=== PATIENT | male | born 1940 | race Hispanic/Latino ===

== ENCOUNTER 2020-11-11 06:06 | Day surgery (SDC) | payer MEDICARE ==
[2020-11-11] MEDS ORDERED: SODIUM CHLORIDE 0.9% 500 ML 500 ML IV SCH (07:00)
[2020-11-11 07:27] LABS: Basophils # (Auto) 0.1 K/mm3 (0.0-0.1); Basophils % (Auto) 2.4 % (0.0-1.8); Eosinophils # (Auto) 0.4 K/mm3 (0.0-0.4); Eosinophils % (Auto) 6.7 % (0.0-4.3); Hematocrit 34.3 % (35.5-45.6); Hemoglobin 11.2 gm/dl (11.8-15.2); Lymphocytes # (Auto) 0.8 K/mm3 (1.2-5.4); Lymphocytes % (Auto) 13.4 % (13.4-35.0); Mean Corpuscular HGB Conc 33 % (32-34); Mean Corpuscular Volume 87 fl (84-94); Monocytes # (Auto) 0.6 K/mm3 (0.0-0.8); Monocytes % (Auto) 9.6 % (0.0-7.3); Platelet Count 228 K/mm3 (140-440); Red Blood Count 3.93 M/mm3 (3.65-5.03); Red Cell Distribution Width 15.4 % (13.2-15.2)
[2020-11-11 07:37] LABS: INR 1.14 (0.87-1.13)
[2020-11-11 07:38] LABS: Partial Thromboplastin Time 36.1 Sec. (24.2-36.6)
[2020-11-11 07:39] LABS: BUN/Creatinine Ratio 48; Blood Urea Nitrogen 43 mg/dL (9-20); Hemolysis Index 1
[2020-11-11] MEDS ORDERED: HEPARIN/NS 5000 UNIT/500ML 1,000 ML IR ONE ×2 (08:06→09:43)
[2020-11-11] MEDS: fentaNYL 100 MCG/2 ML INJ ONE ×6 (09:07→10:57)
[2020-11-11] MEDS: MIDAZOLAM 2 MG/2 ML INJ ONE ×6 (09:07→10:57)
[2020-11-11] MEDS: LIDOCAINE (2%) 20 MG/1 ML VIAL 20 ML MDV INFILTRATI ONE ×3 (09:08→10:28)
[2020-11-11] MEDS ORDERED: SODIUM CHLORIDE 0.9% 1000 ML 1,000 ML ONE (09:16)
[2020-11-11] MEDS ORDERED: NITROGLYCERIN DRIP 50 MG/250 ML BOTTLE ONE (09:16)
[2020-11-11] MEDS ORDERED: VERAPAMIL 5 MG/2 ML INJ ONE ×2 (09:16→10:32)
[2020-11-11] MEDS: HEPARIN 10,000 UNITS/10 ML VIAL ONE ×4 (09:25→10:50)
[2020-11-11] MEDS ORDERED: CLINDAMYCIN 300 MG/50 mL 300 MG/50 ML BAG IV SCH (09:30)
[2020-11-11] MEDS ORDERED: NITROGLYCERIN SYRINGE 3 ML ONE (10:32)
[2020-11-11] MEDS ORDERED: PROTAMINE SULFATE 50 MG/5 ML INJ ONE (11:21)
--- NOTE | 2020-11-11 11:49 | Post Operative Note ---
Date of procedure: 11/11/20 Pre-op diagnosis: Right Lower Extremity Critical Limb Ischemia Post-op diagnosis: same Findings: Aorto-iliac patent bilaterally, Right common femoral, proximal to mid superficial femoral, profunda femoral patent, 20% stenosis of the distal SFA, popliteal artery patent, TP trunk, peroneal and posterior tibial artery patent, complete total occlusion of the proximal anterior tibial artery with reconstitution of the distal anterior tibial artery with DP and and PT patent in the foot. Procedure: 1. Ultrasound guided access of the left common femoral artery 2. Diagnostic Aortogram 3. Right Lower Extremity Angiogram with 3rd Order Catheter Placement 4. Ultrasound guided pedal access of the right anterior tibial artery 5. Right Anterior Tibial Atherectomy and Angioplasty with 1.25 solid CSI Device Anesthesia: MAC, local Surgeon: HUMZA JAMES Estimated blood loss: minimal Pathology: none Condition: stable Disposition: PACU
--- NOTE | 2020-11-11 12:02 | Short Stay Summary ---
Short Stay Documentation Date of service: 11/11/20 - History H&P: obtained from office Past Medical History: CAD, COPD, hypertension, PVD - Allergies and Medications Current Medications: Allergies piperacillin [From Zosyn] Allergy (Verified 11/11/20 06:54) Unknown tazobactam [From Zosyn] Allergy (Verified 11/11/20 06:54) Unknown lorazepam [From Ativan] Adverse Reaction (Verified 09/24/13 15:29) Unknown Penicillins Adverse Reaction (Verified 09/24/13 15:29) Unknown Home Medications Medication Instructions Recorded Confirmed Last Taken Type AtorvaSTATin [Lipitor] 40 mg PO HS 11/11/20 11/11/20 11/10/20 History 40 mg Insulin Aspart (Nf) [NovoLOG 2 - 15 units SQ BID PRN 11/11/20 11/11/20 11/08/20 History Flexpen] 1 cap Ipratropium/Albuterol Sulfate 1 ampul INHALATION Q6H PRN 11/11/20 11/11/20 10/21/20 History [DUONEB *Not for PRN Use*] Omeprazole 40 mg PO DAILY 11/11/20 11/11/20 11/10/20 History 40 mg PARoxetine [Paxil] 10 mg PO DAILY 11/11/20 11/11/20 11/08/20 History 10 mg Thera-M Caplet 1 cap PO DAILY 11/11/20 11/11/20 11/08/20 History 1 cap oxyCODONE /ACETAMINOPHEN [Percocet 1 tab PO Q4H PRN 11/11/20 11/11/20 11/08/20 History 5/325 mg] 1 tab Active Medications Sodium Chloride (Nacl 0.9% 500 Ml) 500 mls @ 50 mls/hr IV DIRECT RICHARD Clindamycin HCl (Cleocin 300 Mg/50 Ml) 300 mg in 50 mls @ 100 mls/hr IV PREOP RICHARD Stop: 11/11/20 14:00 Last Admin: 11/11/20 09:22 Dose: 50 mls Documented by: - Physical exam General appearance: no acute distress Lungs: Normal air movement Heart: Regular rate Extremities: no ischemia - Hospital course Hospital course: the patient was taken to the [facility] and had a right leg angiogram performed. please refer to the operative note concerning details of the procedure. the patient tolerated the procedure well and was discharged home in stable condition. - Disposition Condition at discharge: Stable Disposition: [id number] TO HOME OR SELFCARE Short Stay Discharge Plan Follow up with: PRIMARY CARE, [Primary Care Provider] - 7 Days
--- NOTE | 2020-11-11 13:04 | Operative Report ---
STAFF SURGEON: Dr. Jeovanny Law. PREOPERATIVE DIAGNOSIS: Right lower extremity critical limb ischemia. POSTOPERATIVE DIAGNOSIS: Right lower extremity critical limb ischemia. PROCEDURES PERFORMED: 1. Ultrasound-guided access of the left common femoral artery. 2. Diagnostic aortogram. 3. Right lower extremity angiogram with third order catheter placement. 4. Ultrasound-guided pedal access of the right anterior tibial artery. 5. Right anterior tibial atherectomy and angioplasty with a 1.25 solid CSI device. COMPLICATIONS: None. ESTIMATED BLOOD LOSS: Less than 10 mL. ANESTHESIA: Local MAC. ANGIOGRAPHIC FINDINGS: The aortoiliac system was widely patent bilaterally. The right common femoral, proximal to mid superficial femoral and profunda femoral were all patent. There was a 20% stenosis of the distal superficial femoral artery. The popliteal artery was widely patent. The tibioperoneal trunk, peroneal and posterior tibial arteries were also all widely patent. There was a complete total occlusion of the proximal anterior tibial artery with reconstitution of the distal anterior tibial artery with dorsalis pedis and posterior tibial artery patent in the foot. 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 The patient has had lower leg wounds on the right anterolateral lower leg for several months without any significant healing. The patient had diagnostic imaging, which demonstrated significant popliteal disease that was likely contributing to the patient's poor healing status. It was felt that the patient would benefit from endovascular intervention and the patient was explained of the risks, benefits and alternatives of procedure, expressed understanding and wished to proceed. DESCRIPTION OF PROCEDURE: After appropriate consent was obtained, the patient was brought back to the microbiological laboratory technician, placed on the table in supine position. Both groins were prepped and draped in the usual sterile fashion with ChloraPrep. Appropriate time-out performed indicating correct patient, procedure, and site of the procedure. We then began the intervention by obtaining percutaneous access of the left common femoral artery using a micropuncture technique under ultrasound guidance. Once we obtained access, needle was exchanged for a micropuncture sheath using Seldinger technique. Sheath was then upsized to a 6-[place] sheath over a stiff J wire. The patient was then given unfractionated heparin intravenously and ACTs were obtained throughout the remainder of the case for adequate anticoagulation. We then proceeded to place a [place] Advantage and Omniflush catheter into the infrarenal aorta. A diagnostic aortogram was performed, which demonstrated the findings noted above. We then proceeded to cannulate the right iliac system with a combination of the [place] Advantage and Omniflush catheter. The catheter was advanced over the bifurcation into the distal external iliac artery, then a series of diagnostic imaging of the right lower extremity was performed, which demonstrated the findings noted above. With this, we then proceeded to advance the [place] Advantage wire into the popliteal artery and angled NaviCross was advanced over the catheter into the P2 segment of the popliteal artery. Then, a tibial runoff was performed to better delineate the tibial anatomy of the right lower extremity. We then proceeded to replace the [place] Advantage wire into the popliteal artery, the catheter was removed, the short 6-[place] sheath was then exchanged for a 6-[place] x 90 cm sheath. We then proceeded to cannulate the origin of the anterior tibial artery with the [place] Advantage wire and NaviCross, then a series of catheters and wires were used in an attempt to cross the lesion in an antegrade fashion, which were unsuccessful. With this, we then proceeded to prep the foot and proceeded to obtain pedal access of the anterior tibial artery using a micropuncture technique under ultrasound guidance. Once we obtained access, the needle was exchanged for a micropuncture sheath using Seldinger technique and then this was upsized to a 6-[place] slender sheath. Diagnostic imaging was performed demonstrating we were within the anterior tibial artery. We then proceeded to cross the lesion with a combination of a TrailBlazer catheter and [place] wire, which we were able to be advanced into the popliteal artery. The wire was removed. Diagnostic imaging demonstrated we were within the true lumen. A Viper wire was then placed through the catheter. Catheter was removed and a 1.25 CSI solid device was then brought on to field and proceeded to treat the lesion of the anterior tibial artery from the pedal access. Once that is complete, this was done under low and medium settings. Once complete, we then removed the device performed a balloon angioplasty of the lesion with a 3 x 220 length balloon under low pressure. This was performed for approximately 3 minutes. We then did a completion angiogram, which demonstrated less than 10% residual stenosis. With this, we then proceeded to remove all the wires and catheters, the long sheath was exchanged for a short 6-[place] sheath over the [place] Advantage wire, we then proceeded to administer protamine for heparinization reversal, Mynx closure device was deployed, it was deployed adequately the left groin and digital compression was held for further hemostasis. The 5 sheath was removed and digital compression was held at the access site for hemostasis. Once we were satisfied with hemostasis, appropriate dressings were placed. The patient tolerated the procedure well, emerged from the conscious sedation and sent to recovery in stable condition. JOB# [id number] VCN/NTS
[2020-11-11 16:32] VITALS: BP 146/53
== END 2020-11-11 17:10 ==
LOC: CATHLABREC 06:06
PROVIDERS: ATTEND Surgery Vascular Surgery
DX: I70.201 Unspecified atherosclerosis of native arteries of extremities, right leg (principal); E11.51 Type 2 diabetes mellitus with diabetic peripheral angiopathy without gangrene; I11.0 Hypertensive heart disease with heart failure; I25.10 Atherosclerotic heart disease of native coronary artery without angina pectoris; E78.00 Pure hypercholesterolemia, unspecified; I48.91 Unspecified atrial fibrillation; J44.9 Chronic obstructive pulmonary disease, unspecified; F17.210 Nicotine dependence, cigarettes, uncomplicated; K21.9 Gastro-esophageal reflux disease without esophagitis; E03.9 Hypothyroidism, unspecified; F32.9 Major depressive disorder, single episode, unspecified; Z88.0 Allergy status to penicillin; Z88.8 Allergy status to other drugs, medicaments and biological substances; Z79.899 Other long term (current) drug therapy; Z79.4 Long term (current) use of insulin; Z98.49 Cataract extraction status, unspecified eye; Z98.890 Other specified postprocedural states
CPT/HCPCS: 36415; 37229; 76937; 80048; 82962; 85025; 85610; 85730; 93005; 99156; 99157; C1724; C1725; C1760; C1769; C1887; C1894; J1644; J2250; J2720; J3010; J7030; J7040; Q9967